=== PATIENT | female | born 1965 | race Native Hawaiian/Other Pacific Islander ===

== ENCOUNTER 2016-06-19 09:23 | Outpatient (CLI) | payer OTHER ==
[~2016-06-19 09:23] MED LIST: ACID CONTROL20 MG OR; BENZTROPINE0.5 MG PO; CETIRIZINE10 MG PO; DIVALPROEX500 MG OR; ESOM40CA PO; FLUOXETINE40 MG PO; IBU-200200 MG PO; POLYETHYLENE GL1 POW OR; RISPERDAL4 MG PO; ROBITUSSN DM OR; SEROQUEL300 MG OR; SIMV20TA2 PO; SINGULAIR10 MG PO; TRICOR48 MG PO; UNITH DIRECT75 MCG PO
[2016-06-19 10:14] LABS: POTASSIUM 4.2 mmol/L (3.6-5.2); SODIUM 137 mmol/L (136-145)
== END 2016-06-19 19:11 | disposition home or self-care (01) ==
LOC: LABW 09:23
DX: Z79.899 Other long term (current) drug therapy (principal)
CPT/HCPCS: 36415; 80053; 80061; 80164

== ENCOUNTER 2017-04-09 08:24 | Outpatient (CLI) | payer OTHER | END 2017-04-09 18:42 | disposition home or self-care (01) | LOC: MAMMO 08:24 | DX: Z12.31 Encounter for screening mammogram for malignant neoplasm of breast (principal) ==

== ENCOUNTER 2017-04-23 09:53 | Outpatient (CLI) | payer OTHER | END 2017-04-23 21:46 | disposition home or self-care (01) | LOC: MAMMO 09:53 | DX: N64.59 Other signs and symptoms in breast (principal) ==